=== PATIENT | male | born 1985 | race Hispanic/Latino ===

== ENCOUNTER 2017-01-21 21:08 | Inpatient (IN) | payer MEDICAID, OTHER ==
[2017-01-21 22:14] LABS: BASO # 0.1 K/uL (0.0-0.2); EOS # 0.4 K/uL (0.0-0.7); EOS % 4.3 % (0.0-4.0); HEMATOCRIT 44.3 % (35.0-51.0); LYMPH # 2.7 K/uL (1.0-4.3); MEAN CELL VOLUME 91.5 fL (80.0-94.0); MEAN CORPUSCULAR HEMOGLOBIN 31.5 pg (27.0-31.0); MEAN CORPUSCULAR HGB CONC 34.4 g/dL (33.0-37.0); MEAN PLATELET VOLUME 7.4 fL (7.2-11.7); MONO # 0.7 K/uL (0.0-0.8); MONO % 7.5 % (0.0-10.0); RED CELL DISTRIBUTION WIDTH 13.2 % (11.5-14.5)
[2017-01-21 22:20] LABS: RBC URINE 1 /hpf (0-3); URINE BILIRUBIN NEGATIVE (NEGATIVE); URINE BLOOD NEGATIVE (NEGATIVE); URINE COLOR Yellow (YELLOW); URINE GLUCOSE (UA) NORMAL (Normal); URINE KETONE NEGATIVE (NEGATIVE); URINE LEUKOCYTE ESTERASE NEG Leu/uL (Negative); URINE PROTEIN NEGATIVE (NEGATIVE); URINE UROBILINOGEN NORMAL mg/dL (0.2-1.0); WBC URINE 1 /hpf (0-5)
[2017-01-21 22:24] LABS: CHLORIDE 104 mmol/L (98-107); POTASSIUM 3.9 mmol/L (3.6-5.2); SODIUM 143 mmol/L (132-148)
[2017-01-21 22:26] LABS: GFR AFRICAN-AMERICAN > 60
[2017-01-21 22:27] LABS: ALB/GLOB RATIO 1.7 (1.0-2.1); ALKALINE PHOSPHATASE 68 U/L (38-126); ALT/SGPT 35 U/L (21-72); AST/SGOT 55 U/L (17-59); BILIRUBIN,TOTAL 0.7 mg/dL (0.2-1.3); BLOOD UREA NITROGEN 12 mg/dL (9-20); CALCIUM 8.4 mg/dl (8.6-10.4); CARBON DIOXIDE 24 mmol/L (22-30); GLUCOSE,RANDOM 97 mg/dL (75-110); TOTAL PROTEIN 7.5 g/dL (6.3-8.3)
[2017-01-21 22:28] LABS: ALCOHOL SERUM 17 mg/dl (0-10)
--- NOTE | 2017-01-21 23:17 | C.PDOC ---
History Of Present Illness Patient is a 32 year old male who presents to the ER with a complaint of suicidal ideation. Patient states he is homeless and was recently kicked out of the [employer] in [place], [place] for failing the drug screen. Patient states the incident made him want to use more narcotics and last use of heroin was last night, patient admits to drinking and cocaine use today. Patient denies suicidal plan or any other physical complaints. Time Seen by Provider: 01/21/17 21:54 Chief Complaint (Nursing): Psychiatric Evaluation History/Exam Limitations: no limitations Onset/Duration Of Symptoms: Hrs Current Symptoms Are (Timing): Still Present Suicide/Self Injury Attempted (Context): None Modifying Factor(s): Alcohol, Cocaine Associated Symptoms: Depression, Suicidal Thoughts. denies: Suicidal Plan Involuntary Hold By: None Recent travel outside of the [place]: No Past Medical History Reviewed: Historical Data, Nursing Documentation, Vital Signs Vital Signs: Last Vital Signs Temp 97.9 F 01/22/17 00:23 Pulse 66 01/22/17 00:23 Resp 18 01/22/17 00:23 BP 119/68 01/22/17 00:23 Pulse Ox 99 01/22/17 00:23 - Medical History PMH: Anxiety, Bipolar Disorder Surgical History: No Surg Hx Family History: States: Unknown Family Hx - Social History Hx Alcohol Use: Yes Hx Substance Use: Yes - Immunization History Hx Tetanus Toxoid Vaccination: No Hx Influenza Vaccination: No Hx Pneumococcal Vaccination: No Review Of Systems Constitutional: Negative for: Fever, Chills Gastrointestinal: Negative for: Nausea, Vomiting, Diarrhea Psych: Positive for: Suicidal ideation Physical Exam - Physical Exam Appears: Well, Non-toxic Skin: Normal Color, Warm, Dry Head: Atraumatic, Normacephalic Oral Mucosa: Moist Chest: Symmetrical, No Tenderness Cardiovascular: Rhythm Regular, No Murmur Respiratory: Normal Breath Sounds, No Rales, No Rhonchi, No Wheezing Gastrointestinal/Abdominal: Soft, No Tenderness Neurological/Psych: Oriented x3, Normal Speech, Normal Cognition ED Course And Treatment - Laboratory Results Result Diagrams: 01/21/17 22:10 01/21/17 22:10 Lab Interpretation: No Acute Changes Interpretation Of Abnormal: UDS positive for marijuana, cocaine. ETOH 17. O2 Sat by Pulse Oximetry: 97 (Room air) Pulse Ox Interpretation: Normal Reevaluation Time: 00:50 Reassessment Condition: Unchanged (Patient remains comfortable pending psych evaluation.) Disposition - Disposition Disposition Time: 00:51 Condition: STABLE - Clinical Impression Clinical Impression: Depression with suicidal ideation, Polysubstance abuse - Scribe Statement The provider has reviewed the documentation as recorded by the Scribe Jessee Man All medical record entries made by the Scribe were at my direction and personally dictated by me. I have reviewed the chart and agree that the record accurately reflects my personal performance of the history, physical exam, medical decision making, and the department course for this patient. I have also personally directed, reviewed, and agree with the discharge instructions and disposition. Physician Patient Turnover Patient Signed Over To: Hood Alvarez Handoff Comments: Pending crisis eval
[2017-01-22] MEDS: Multiple Vitamins Tab PO SCH (10:36)
--- NOTE | 2017-01-22 10:59 | PCM.PSYCH ---
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 Admitted for thoughts of killing himself. Pt states that for the past 5 months he has been living at [facility] until he became manic causing him to relapse to using crack cocain, heroin and abusing alcohol. Pt snorts 1 gram of cocaine daily and snorts 10 bags of heroin daily. Drinks a 6 pack of beer daily. Smokes 1 pack of cigarettes daily. He was at [facility] for the last 5 months . Pt was in [facility] late summer. He has been treated in the past for his bipolar disorder with [place] and Lamictal. Appears anxious and depressed. Now complains of anxiety, abdominal pain, heat/ cold intolerance, low back pain, nervousness and and requesting methadone. Complains of back pain, sweating and heat/cold intolerance. Denies homicidal ideation, auditory or visual hallucinations or persecutory delusions. Says sleep and appetite are good. He wants to go back to [facility] after detox. Current Medications: Active Medications Generic Name Dose Route Start Last Admin Trade Name Myra PRN Reason Stop Dose Admin Chlordiazepoxide 25 mg 01/22/17 12:00 Librium PO 01/26/17 11:59 Q6 ISH Taper Chlordiazepoxide 25 mg 01/22/17 10:12 01/22/17 10:36 Librium PO 25 mg Q4H PRN Administration Alcohol Withdrawal Clonidine HCl 0.1 mg 01/22/17 10:12 Catapres PO Q4H PRN Symptoms of alcohol withdrawl Folic Acid 1 mg 01/22/17 10:15 01/22/17 10:36 Folic Acid PO 1 mg DAILY ISH Administration Multivitamins 1 tab 01/22/17 10:15 01/22/17 10:36 Hexavitamin PO 1 tab DAILY ISH Administration Pneumococcal Polyvalent Vaccine 0.5 ml 01/24/17 10:00 Pneumovax 23 Vaccine IM 01/24/17 10:01 .ONCE ONE Thiamine HCl 100 mg 01/22/17 10:15 01/22/17 10:36 Vitamin B1 Tab PO 100 mg DAILY ISH Administration Trazodone HCl 50 mg 01/22/17 10:12 Desyrel PO HS PRN Insomnia Past Psychiatric History - Past Psychiatric History Previous Treatment History: None Pertinent Medical Hx (Current Medical&Sleep Prob, Allergies): Allergies Allergy/AdvReac Type Severity Reaction Status Date / Time No Known Allergies Allergy Verified 01/21/17 21:57 No Known Home Med 01/21/17 Review of Systems - Review of Systems All systems: reviewed and no additional remarkable complaints except - Psychiatric Psychiatric: Anxiety, Irritability, Mood Swings, Suicidal Ideation. absent: Auditory Hallucinations, Visual Hallucinations Mental Status Examination - Personal Presentation Personal Presentation: Looks stated age - Affect Affect: Constricted - Motor Activity Motor Activity: Calm - Reliability in Providing Information Reliability in Providing Information: Good - Speech Speech: Organized - Mood Mood: Anxious - Formal Thought Process Formal Thought Process: No Impairment - Obsessions/Compulsions Obsessions: No Compulsions: No - Cognitive Functions Orientation: Person, Place, Situation, Time Sensorium: Alert Attention/Concentration: Attentive Abstract Thinking: [place] Estimate of Intelligence: Below average Judgement: Imparied, as evidence by: Poor judgement, Imparied, as evidence by: Lack of insight into illness - Risk Risk: Suicidal, Withdrawal, Diminished functioning - Strength & Assets Inventory Strength & Assets Inventory: Intelligence - Limitations Limitations: Living alone DSM 5 DX - DSM 5 DSM 5 Diagnosis: Bipolar disorder mixed severe without psychotic features Alcohol use disorder severe Alcohol withdrawal uncomplicated Opiate use disorder severe Cocaine use disorder severe - Recommended/Plan of Treatment Treatment Recommendations and Plan of Treatment: Bipolar disorder mixed severe without psychotic features CBT Psychoeducation Supportive therapy, group therapy, individual therapy Trazodone 50 mg by mouth daily at bedtime Alcohol use disorder severe CBT Psychoeducation Supportive therapy, individual therapy Use [place] for abstinence Alcohol withdrawal uncomplicated CBT Psychoeducation Supportive therapy, individual therapy Librium when necessary Start Librium taper Start folic acid/thiamine/multivitamin Opiate use disorder severe CBT Psychoeducation Supportive therapy, individual therapy Methadone taper Cocaine use disorder severe Monitor signs and symptoms Use [place] for abstinence - Smoking Cessation Smoking Cessation Initiated: No
[2017-01-23] MEDS: Multiple Vitamins Tab PO SCH (09:48)
--- NOTE | 2017-01-23 11:35 | PCM.PYCHPN ---
Psychiatric Progress Note - Psychiatric Progress Note Patient seen today, length of contact: 15 min Patient Chief Complaint: I wanted to kill myself Problems Identified/Issues Discussed: Pt was seen and evaluated. Chart reviewed and discussed with the nurse. Patient appears anxious and restless with rapid speech. He states that he had a rough night of sleep. He complains of lucid dreaming. Restless legs, heat/cold intolerance. He was given 25 mg of methadone. Pt requesting that his methadone and Librium be reduced. He thinks that Remeron caused him to have restless legs. He denies thoughts of hurting self or others. Pt denies visual or auditory hallucinations or persecutory delusions. He denies problems with his appetite. Pt states he is feeling hopeful since he has people that support him and after discharge and he will be going back to [employer]. Medication Change: Yes (Start lithium) Medical Record Reviewed: Yes Mental Status Examination - Cognitive Function Orientation: Person, Place, Situation, Time Memory: Intact Attention: WNL Concentration: Poor Association: WNL Fund of Knowledge: Poor - Mood Mood: Depressed, Anxious - Affect Affect: Constricted - Speech Speech: Soft - Formal Thought Process Formal Thought Process: No Impairment - Suicidal Ideation Suicidal Ideation: No - Homicidal Ideation Homicidal Ideation: No Goal/Treatment Plan - Goal/Treatment Plan Need for Continued Stay: Discharge may exacerbated symptoms, Severe functional impairment Progress Toward Problem(s) and Goals/Treatment Plan: Bipolar disorder mixed severe without psychotic features CBT Psychoeducation Supportive therapy, group therapy, individual therapy [place] 300 milligrams by mouth 3 times a day Trazodone 50 mg by mouth daily at bedtime Alcohol use disorder severe CBT Psychoeducation Supportive therapy, individual therapy Use [place] for abstinence Alcohol withdrawal uncomplicated CBT Psychoeducation Supportive therapy, individual therapy Librium when necessary Start Librium taper Start folic acid/thiamine/multivitamin Opiate use disorder severe CBT Psychoeducation Supportive therapy, individual therapy Methadone taper Cocaine use disorder severe Monitor signs and symptoms Use [place] for abstinence - Smoking Cessation Smoking Cessation Initiated: No
[2017-01-24] MEDS ORDERED: Pneumococcal 23-Valent Vaccine IM ONE (10:00)
[2017-01-24] MEDS: Multiple Vitamins Tab PO SCH (10:30)
--- NOTE | 2017-01-24 12:54 | PCM.PYCHPN ---
Psychiatric Progress Note - Psychiatric Progress Note Patient seen today, length of contact: 15 min Patient Chief Complaint: I wanted to kill myself Problems Identified/Issues Discussed: Pt was seen and evaluated. Chart reviewed and discussed with the nurse. Patient appears anxious and restless with rapid speech. He states that he had a rough night of sleep. He complains of lucid dreaming. Restless legs, heat/cold intolerance. He was given 25 mg of methadone. Pt requesting that his methadone and Librium be reduced. He thinks that Remeron caused him to have restless legs. He denies thoughts of hurting self or others. Pt denies visual or auditory hallucinations or persecutory delusions. He denies problems with his appetite. Pt states he is feeling hopeful since he has people that support him and after discharge and he will be going back to [employer]. Medication Change: Yes (Start lithium) Medical Record Reviewed: Yes Mental Status Examination - Cognitive Function Orientation: Person, Place, Situation, Time Memory: Intact Attention: WNL Concentration: Poor Association: WNL Fund of Knowledge: Poor - Mood Mood: Depressed, Anxious - Affect Affect: Constricted - Speech Speech: Soft - Formal Thought Process Formal Thought Process: No Impairment - Suicidal Ideation Suicidal Ideation: No - Homicidal Ideation Homicidal Ideation: No Goal/Treatment Plan - Goal/Treatment Plan Need for Continued Stay: Discharge may exacerbated symptoms, Severe functional impairment Progress Toward Problem(s) and Goals/Treatment Plan: Bipolar disorder mixed severe without psychotic features CBT Psychoeducation Supportive therapy, group therapy, individual therapy [place] 300 milligrams by mouth 3 times a day Trazodone 50 mg by mouth daily at bedtime Alcohol use disorder severe CBT Psychoeducation Supportive therapy, individual therapy Use [place] for abstinence Alcohol withdrawal uncomplicated CBT Psychoeducation Supportive therapy, individual therapy Librium when necessary Start Librium taper Start folic acid/thiamine/multivitamin Opiate use disorder severe CBT Psychoeducation Supportive therapy, individual therapy Methadone taper Cocaine use disorder severe Monitor signs and symptoms Use CT for abstinence
[2017-01-25 07:42] VITALS: O2SAT 98
[2017-01-25] MEDS: Multiple Vitamins Tab PO SCH (09:48)
--- NOTE | 2017-01-25 16:04 | PCM.PYCHPN ---
Psychiatric Progress Note - Psychiatric Progress Note Patient seen today, length of contact: 15 min Patient Chief Complaint: I wanted to kill myself Problems Identified/Issues Discussed: Pt was seen and evaluated. Chart reviewed and discussed with the nurse. Patient appears anxious and restless with rapid speech. He states that he had a rough night of sleep. He complains of lucid dreaming. Restless legs, heat/cold intolerance. He was given 25 mg of methadone. Pt requesting that his methadone and Librium be reduced. He thinks that Remeron caused him to have restless legs. He denies thoughts of hurting self or others. Pt denies visual or auditory hallucinations or persecutory delusions. He denies problems with his appetite. Pt states he is feeling hopeful since he has people that support him and after discharge and he will be going back to [employer]. Medication Change: Yes (Start lithium) Medical Record Reviewed: Yes Mental Status Examination - Cognitive Function Orientation: Person, Place, Situation, Time Memory: Intact Attention: WNL Concentration: Poor Association: WNL Fund of Knowledge: Poor - Mood Mood: Depressed, Anxious - Affect Affect: Constricted - Speech Speech: Soft - Formal Thought Process Formal Thought Process: No Impairment - Suicidal Ideation Suicidal Ideation: No - Homicidal Ideation Homicidal Ideation: No Goal/Treatment Plan - Goal/Treatment Plan Need for Continued Stay: Discharge may exacerbated symptoms, Severe functional impairment Progress Toward Problem(s) and Goals/Treatment Plan: Bipolar disorder mixed severe without psychotic features CBT Psychoeducation Supportive therapy, group therapy, individual therapy [place] 300 milligrams by mouth 3 times a day Trazodone 50 mg by mouth daily at bedtime Alcohol use disorder severe CBT Psychoeducation Supportive therapy, individual therapy Use [place] for abstinence Alcohol withdrawal uncomplicated CBT Psychoeducation Supportive therapy, individual therapy Librium when necessary Start Librium taper Start folic acid/thiamine/multivitamin Opiate use disorder severe CBT Psychoeducation Supportive therapy, individual therapy Methadone taper Cocaine use disorder severe Monitor signs and symptoms Use [place] for abstinence
[2017-01-26] MEDS: Multiple Vitamins Tab PO SCH (09:32)
[2017-01-26 10:43] VITALS: RESP 20; TEMP 98.3
--- NOTE | 2017-01-26 15:12 | PCM.PYCHPN ---
Psychiatric Progress Note - Psychiatric Progress Note Patient seen today, length of contact: 15 min Patient Chief Complaint: I wanted to kill myself Problems Identified/Issues Discussed: Pt was seen and evaluated. Chart reviewed and discussed with the nurse. Patient appears anxious and restless with rapid speech. He states that he had a rough night of sleep. He complains of lucid dreaming. Restless legs, heat/cold intolerance. He was given 25 mg of methadone. Pt requesting that his methadone and Librium be reduced. He thinks that Remeron caused him to have restless legs. He denies thoughts of hurting self or others. Pt denies visual or auditory hallucinations or persecutory delusions. He denies problems with his appetite. Pt states he is feeling hopeful since he has people that support him and after discharge and he will be going back to [employer]. Medication Change: Yes (Start lithium) Medical Record Reviewed: Yes Mental Status Examination - Cognitive Function Orientation: Person, Place, Situation, Time Memory: Intact Attention: WNL Concentration: Poor Association: WNL Fund of Knowledge: Poor - Mood Mood: Depressed, Anxious - Affect Affect: Constricted - Speech Speech: Soft - Formal Thought Process Formal Thought Process: No Impairment - Suicidal Ideation Suicidal Ideation: No - Homicidal Ideation Homicidal Ideation: No Goal/Treatment Plan - Goal/Treatment Plan Need for Continued Stay: Discharge may exacerbated symptoms, Severe functional impairment Progress Toward Problem(s) and Goals/Treatment Plan: Bipolar disorder mixed severe without psychotic features CBT Psychoeducation Supportive therapy, group therapy, individual therapy [place] 300 milligrams by mouth 3 times a day Trazodone 50 mg by mouth daily at bedtime Alcohol use disorder severe CBT Psychoeducation Supportive therapy, individual therapy Use [place] for abstinence Alcohol withdrawal uncomplicated CBT Psychoeducation Supportive therapy, individual therapy Librium when necessary Start Librium taper Start folic acid/thiamine/multivitamin Opiate use disorder severe CBT Psychoeducation Supportive therapy, individual therapy Methadone taper Cocaine use disorder severe Monitor signs and symptoms Use [place] for abstinence
[2017-01-26 15:53] VITALS: BP 98/67; PULSE 74
[2017-01-27] MEDS: Multiple Vitamins Tab PO SCH (09:34)
--- NOTE | 2017-01-27 09:56 | PCM.PYCHDC ---
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 Admitted for thoughts of killing himself. Pt states that for the past 5 months he has been living at [facility] until he became manic causing him to relapse to using crack cocain, heroin and abusing alcohol. Pt snorts 1 gram of cocaine daily and snorts 10 bags of heroin daily. Drinks a 6 pack of beer daily. Smokes 1 pack of cigarettes daily. [facility] Pt was in [facility] late summer. He has been treated in the past for his bipolar disorder with [place] and Lamictal. Appears anxious and depressed. Now complains of anxiety, abdominal pain, heat/ cold intolerance, low back pain, nervousness and and requesting methadone. Complains of back pain, sweating and heat/cold intolerance. Denies homicidal ideation, auditory or visual hallucinations or persecutory delusions. Says sleep and appetite are good. [facility] Consultations:: List each consultation separately and include: 1. Reason for request. 2. Findings. 3. Follow-up Summary of Hospital Course include:: 1. Description of specific treatment plan utilized for patients during their course of treatmen. 2. Summarize the time- course for resolution of acute symptoms and/or regressed behaviors. 3. Describe issues identified and worked on during hospitalization. 4. Describe medication utilized. 5. Describe medical problems identified and treated. 6. Reassessment of suicide risk Summary of Hospital Course: During the course of his stay, patient (pt) started progressively improving and he no longer remained irritable, depressed, and suicidal. His mood was improved and he started attending groups and meetings and started socializing. Patient denied any feelings of hopelessness, helplessness, and worthlessness, denied any problem with the sleep or appetite, denied suicidal ideation or homicidal ideation. Pt denied any auditory or visual hallucinations. Some changes were made in his current medications and patient was discharged on following medications. He tolerated these medications very well and denied any side effects. - Final Diagnosis (DSM 5) Condition upon Discharge: FAIR DSM 5: Bipolar disorder mixed severe without psychotic features Alcohol use disorder severe Alcohol withdrawal uncomplicated Opiate use disorder severe Cocaine use disorder severe Disposition: HOME/ ROUTINE Follow-up Treatment Plan: Education: Pt was educated and counseled about the risks and benefits of taking and not taking medications. Pt was educated and counseled about the risks of drinking and abusing drugs. Pt was educated and counseled to go to the ER or call 911 if pt develop suicidal ideation or homicidal ideation, worsening of symptoms or severe side effects of the meds. Prescriptions/Medication Reconciliation: [place] Carbonate [[place] Carbonate 300MG] 300 mg PO TID #90 cap traZODone [Desyrel] 50 mg PO HS PRN #30 tab PRN Reason: Insomnia - Smoking Cessation Smoking Cessation Medication prescribed: No - Antipsychotic Medications Pt discharged on 2 or more routine antipsychotic medications: No
== END 2017-01-27 10:50 | disposition home or self-care (01) | DRG 430 ==
LOC: C.ER 21:08 → C.5E 01-22 01:21
PROVIDERS: ADMIT Psychiatry & Neurology Psychiatry; ATTEND Psychiatry & Neurology Psychiatry
PROC: GZ3ZZZZ Medication Management (ICD-10-PCS; principal; 2017-01-22)
PROC: HZ2ZZZZ Detoxification Services for Substance Abuse Treatment (ICD-10-PCS; 2017-01-22)
PROC: GZHZZZZ Group Psychotherapy (ICD-10-PCS; 2017-01-22)
PROC: GZ56ZZZ Individual Psychotherapy, Supportive (ICD-10-PCS; 2017-01-22)
PROC: HZ59ZZZ Individual Psychotherapy for Substance Abuse Treatment, Supportive (ICD-10-PCS; 2017-01-22)
DX: F31.63 Bipolar disorder, current episode mixed, severe, without psychotic features (principal); F11.20 Opioid dependence, uncomplicated; F10.230 Alcohol dependence with withdrawal, uncomplicated; R45.851 Suicidal ideations; F14.20 Cocaine dependence, uncomplicated; F17.210 Nicotine dependence, cigarettes, uncomplicated; Z59.0 Homelessness